=== PATIENT | female | born 2000 | race Two or more races ===

== ENCOUNTER 2024-12-27 13:45 | Inpatient (IN) | payer OTHER ==
[~2024-12-27] VITALS: Ht 165.1 cm; Wt 3.2 kg
[2025-01-15 05:34] VITALS: BP 120/71
[2025-01-15] MEDS ORDERED: AMPICILLIN SODIUM 2,000 MG in 0.9 % SODIUM CHLORIDE 100 ML IV ONE (06:00)
[2025-01-15] MEDS ORDERED: AMPICILLIN SODIUM IV ONE (06:00)
[2025-01-15] MEDS ORDERED: AMPICILLIN SODIUM 2,000 MG VIAL ONE (06:08)
[2025-01-15] MEDS ORDERED: OXYTOCIN 20 UNITS/500ML RL PIGGYBAG IV ONE (06:09)
[2025-01-15] MEDS ORDERED: AMPICILLIN SODIUM IV STA (06:11)
[2025-01-15] MEDS ORDERED: RINGERS SOLUTION,LACTATED 1,000 ML IV SCH (06:15)
[2025-01-15] MEDS ORDERED: OXYTOCIN 500 ML IV SCH (06:30)
[2025-01-15] MEDS ORDERED: PRENATA CHEWAB1 EACH PO (06:43)
[2025-01-15] MEDS ORDERED: FOLIC ACID20 MG PO (06:44)
[2025-01-15] MEDS ORDERED: AMPICILLIN SODIUM 1,000 MG VIAL ONE ×2 (07:21→18:20)
[2025-01-15 07:30] LABS: BASO % 0.1 % (0.1-1.2); EOS # 0.07 (0.04-0.54); EOS % 0.5 % (0.7-7.0); LYMPH # 3.36 (1.18-3.74); LYMPH % 22.8 % (19.3-53.1); MEAN PLATELET VOLUME 11.80 fl (9.4-12.4); MONO # 1.31 (0.24-0.82); MONO % 8.9 % (4.7-12.5); NEUT # 9.88 (1.56-6.13); NEUT % 67.2 % (34.0-71.1); RED CELL DISTRIBUTION WIDTH 14.2 % (11.6-14.4)
[2025-01-15 07:47] LABS: URINE APPEARANCE Clear; URINE BILIRRUBIN Negative (NEGATIVE); URINE BLOOD Negative; URINE COLOR Yellow; URINE GLUCOSE Negative (NEGATIVE); URINE KETONE Negative (NEGATIVE); URINE LEUKOCYTE Small; URINE NITRATE Negative; URINE PROTEIN Negative (NEGATIVE); URINE UROBILINOGEN 0.2 E.U./dl
[2025-01-15 07:49] LABS: INR 0.95
[2025-01-15 07:51] LABS: URINE BACTERIA 779.9 uL (0.0-1933); URINE EPITHELIAL CELLS 53.0 uL (0.0-38.8); URINE WBC 77.8 uL (0.0-23.2)
[2025-01-15 07:55] VITALS: BP 123/80
[2025-01-15 07:56] LABS: ALT/SGPT 22.0 U/L (12-78); AST/SGOT 20.0 U/L (15-37); BILIRUBIN TOTAL 0.19 mg/dL (0.3-1.2); BUN CREA RATIO 18.0 (7.0-25.0); CREATININE SERUM 0.79 mg/dL (0.55-1.02); GFR 91.0; GLOBULINA 3.7 G/DL (2.4-3.5); GLUCOSE FASTING 72.0 mg/dL (65-100); OSMOLALITY SERUM 277.0 MOSM/KG (275-295)
[2025-01-15 08:52] LABS: URINE CAST 0.00 uL (0.0-1.40); URINE RBC 1.7 uL (0.0-20.8)
[2025-01-15 08:57] LABS: URINE CRYSTALS FEW /HPF
[2025-01-15] MEDS ORDERED: AMPICILLIN SODIUM 1,000 MG in 0.9 % SODIUM CHLORIDE 50 ML IV SCH (09:00)
[2025-01-15 11:09] VITALS: BP 119/75
[2025-01-15] MEDS ORDERED: OXYTOCIN 10 UNITS/ML VIAL ONE (13:33)
[2025-01-15] MEDS ORDERED: ERYTHROMYCIN BASE OPHT 1GM EACH TUBE OP ONE (13:33)
[2025-01-15] MEDS ORDERED: MORPHINE SULFATE 4 MG/ML CARTRIDGE IV PRN (15:30)
[2025-01-15 19:10] VITALS: BP 107/70
[2025-01-16] VITALS: BP 116/72
[2025-01-16 01:29] LABS: BASO % 0.2 % (0.1-1.2); EOS # 0.01 (0.04-0.54); EOS % 0.0 % (0.7-7.0); LYMPH # 2.96 (1.18-3.74); LYMPH % 12.6 % (19.3-53.1); MEAN PLATELET VOLUME 11.80 fl (9.4-12.4); MONO # 1.52 (0.24-0.82); MONO % 6.5 % (4.7-12.5); NEUT # 18.85 (1.56-6.13); NEUT % 80.2 % (34.0-71.1); RED CELL DISTRIBUTION WIDTH 14.1 % (11.6-14.4)
[2025-01-16 08:00] VITALS: BP 116/73
[2025-01-16] MEDS ORDERED: ACETAMINOPHEN 500 MG GEL..CAP PO PRN (08:15)
[2025-01-16 16:00] VITALS: BP 121/82
[2025-01-16] MEDS ORDERED: SIMETHICONE 125 MG CAPSULE PO SCH (17:00)
[2025-01-17 00:43] VITALS: BP 107/75
[2025-01-17] MEDS ORDERED: IBUPROFEN800 MG PO (08:02)
[2025-01-17 08:55] VITALS: BP 128/80
== END 2025-01-17 13:31 | disposition home or self-care (01) | DRG 788 ==
LOC: OB/GYN 01-11 13:45 → LDR 01-15 06:07 → OB/GYN 01-15 06:07 → O/R 01-15 13:56 → OB/GYN 01-15 16:36
PROVIDERS: ADMIT Specialist; ATTEND Specialist
PROC: 4A1HXCZ Monitoring of Products of Conception, Cardiac Rate, External Approach (ICD-10-PCS; 2025-01-15)
PROC: 10D00Z1 Extraction of Products of Conception, Low, Open Approach (ICD-10-PCS; principal; 2025-01-15 16:15)
DX: O36.8330 Maternal care for abnormalities of the fetal heart rate or rhythm, third trimester, not applicable or unspecified (principal); O76 Abnormality in fetal heart rate and rhythm complicating labor and delivery; O48.0 Post-term pregnancy; O99.824 Streptococcus B carrier state complicating childbirth; Z3A.40 40 weeks gestation of pregnancy; Z37.0 Single live birth